=== PATIENT | female | born 1990 | race Caucasian/White ===

== ENCOUNTER 2017-07-23 11:42 | Emergency (ER) | payer OTHER, BC ==
[2017-07-23] MEDS ORDERED: IBUPROFEN 600 MG TABLET PO ONE (12:54)
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
[2017-07-23 14:37] VITALS: BP 98/56
== END 2017-07-23 14:30 | disposition home or self-care (01) ==
LOC: ER 11:42
DX: S16.1XXA Strain of muscle, fascia and tendon at neck level, initial encounter (principal); S60.221A Contusion of right hand, initial encounter; S00.83XA Contusion of other part of head, initial encounter; Y04.2XXA Assault by strike against or bumped into by another person, initial encounter; Y93.89 Activity, other specified; Y99.0 Civilian activity done for income or pay
CPT/HCPCS: 70486; 99284